=== PATIENT | male | born 1985 | race American Indian/Alaskan Native ===

== ENCOUNTER 2021-08-25 07:26 | Emergency (ER) | payer SELFPAY ==
[2021-08-25 07:35] VITALS: BP 151/77
--- NOTE | 2021-08-25 08:17 | XRay Report ---
RIGHT FOOT 3 VIEWS INDICATION: mid/medial foot pain, no injury, hx of hardware. COMPARISON: None. IMPRESSION: There has been previous surgical fusion of metatarsal bases 1 and 2, cuboid bone and med ial cuneiform bone with 2 orthopedic screws. Please correlate with surgical history. Moderate degener ative changes and spurring is identified at the tarsal metatarsal junction medially. No acute osseous injury or bony destruction is identified. No erosive joint pathology. The soft tissues are unremark able. Signer Name: Adam Johnson Jr, MD Signed: 08/25/2021 8:13 AM Workstation Name: [id number]
--- NOTE | 2021-08-25 08:36 | Emergency Department Report ---
ED General Adult HPI - General Chief complaint: Extremity Injury, Lower Stated complaint: SEVERE RT FOOT PAIN Time Seen by Provider: 08/25/21 07:36 Source: patient Mode of arrival: Ambulatory Limitations: No Limitations - History of Present Illness Initial comments: 36-year-old -[place] male patient presents with complaints of right foot pain x2 weeks. He reports 9 years ago he had hardware placed in his foot after having multiple fractures. He denies any complications since the surgery. No new injuries per patient. He does report that he does a great deal of walking and standing for work. The pain worsens with both walking and standing and resolves with rest. He has not tried any OTC medications for his symptoms. He also denies any numbness/tingling/weakness in his foot, skin changes, swelling, or difficulty moving his foot. Patient rates his pain as a 9/10 in severity when it does occur. - Related Data Previous Rx's Medication Instructions Recorded Last Taken Type Naproxen 500 mg PO BID PRN #20 tablet 08/25/21 Unknown Rx predniSONE [Deltasone] 20 mg PO BID 2 Days #4 tab 08/25/21 Unknown Rx Allergies Allergy/AdvReac Type Severity Reaction Status Date / Time No Known Allergies Allergy Unverified 08/25/21 07:29 ED Review of Systems ROS: Stated complaint: SEVERE RT FOOT PAIN Other details as noted in HPI Constitutional: denies: fever, malaise Musculoskeletal: arthralgia. denies: joint swelling Skin: denies: change in color Neurological: denies: weakness, numbness, paresthesias ED Past Medical Hx - Past Medical History Previous Medical History?: No - Surgical History Past Surgical History?: Yes Additional Surgical History: FOOT SURGERY - Medications Home Medications: Home Medications Medication Instructions Recorded Confirmed Last Taken Type Naproxen 500 mg PO BID PRN #20 tablet 08/25/21 Unknown Rx predniSONE [Deltasone] 20 mg PO BID 2 Days #4 tab 08/25/21 Unknown Rx ED Physical Exam - General Limitations: No Limitations General appearance: alert, in no apparent distress - Head Head exam: Present: atraumatic, normocephalic - Eye Eye exam: Present: normal appearance - Neck Neck exam: Present: normal inspection - Respiratory Respiratory exam: Absent: respiratory distress - Cardiovascular Cardiovascular Exam: Present: regular rate - Extremities Exam Extremities exam: Present: full ROM - Expanded Lower Extremity Exam Right Foot/Toe exam: Present: full ROM, tenderness (Tenderness to palpation noted to medial top portion of foot; no swelling or skin changes noted; surgical scars are noted; normal pedal pulse, range of motion of the foot and ankle, and sensation and perfusion is noted) Neuro vascular tendon exam: Present: no vascular compromise. Absent: pulse deficit Gait: Positive: antalgic - Neurological Exam Neurological exam: Present: alert, oriented X3 - Psychiatric Psychiatric exam: Present: normal affect, normal mood ED Course Vital Signs 08/25/21 07:34 Temperature 98.0 F Pulse Rate 91 H Respiratory 20 Rate Blood Pressure 151/77 O2 Sat by Pulse 97 Oximetry ED Medical Decision Making - Radiology Data Radiology results: report reviewed Fluoro Time In Minutes: RIGHT FOOT 3 VIEWS INDICATION: mid/medial foot pain, no injury, hx of hardware. COMPARISON: None. IMPRESSION: There has been previous surgical fusion of metatarsal bases 1 and 2, cuboid bone and medial cuneiform bone with 2 orthopedic screws. Please correlate with surgical history. Moderate degenerative changes and spurring is identified at the tarsal metatarsal junction medially. No acute osseous injury or bony destruction is identified. No erosive joint pathology. The soft tissues are unremarkable. - Medical Decision Making 36-year-old -[place] male patient presents with complaints of right foot pain x2 weeks. He reports 9 years ago he had hardware placed in his foot after having multiple fractures. He denies any complications since the surgery. No new injuries per patient. He does report that he does a great deal of walking and standing for work. The pain worsens with both walking and standing and resolves with rest. He has not tried any OTC medications for his symptoms. He also denies any numbness/tingling/weakness in his foot, skin changes, swelling, or difficulty moving his foot. Patient rates his pain as a 9/10 in severity when it does occur. No acute abnormalities noted on x-ray however there are arthritic changes noted in the area of patient's pain. Recommend he follows up with orthopedics for further evaluation and treatment. He is otherwise well-appearing, his vitals are within normal limits, he is stable for discharge home. Discussed in detail signs and symptoms that should prompt immediate return to the ED with patient who verbalizes understanding. Critical care attestation.: If time is entered above; I have spent that time in minutes in the direct care of this critically ill patient, excluding procedure time. ED Disposition Clinical Impression: Right foot pain Disposition: HOME / SELF CARE / HOMELESS Is pt being admited?: No Condition: Stable Instructions: Reactive Arthritis, Foot Pain Prescriptions: predniSONE [Deltasone] 20 mg PO BID 2 Days #4 tab Naproxen 500 mg PO BID PRN #20 tablet PRN Reason: pain Referrals: [facility] [Provider Group] - 3-5 Days Forms: Work/School Release Form(ED)
== END 2021-08-25 08:55 | disposition home or self-care (01) ==
LOC: ED 07:26
DX: M79.671 Pain in right foot (principal); Z79.899 Other long term (current) drug therapy
CPT/HCPCS: 99283

== ENCOUNTER 2022-06-21 12:32 | Emergency (ER) | payer SELFPAY ==
[2022-06-21 14:46] VITALS: BP 133/82
--- NOTE | 2022-06-21 14:46 | Emergency Department Report ---
ED ENT HPI - General Chief complaint: Dental/Oral Stated complaint: TOOTH ACHE Time Seen by Provider: 06/21/22 14:45 Source: patient Mode of arrival: Ambulatory Limitations: No Limitations - History of Present Illness Initial comments: 37 YO COMES TO ER WITH BILATERAL LOWER MOLAR PAIN HE HAS OBVIOUS CAVITIES BUT HAS NOT SEEN DMD ABC INTACT NO LUDWIGS NO ABSCESS TAKING PO NO TRISMUS NO FEVER NO CHILLS MD complaint: tooth pain -: Gradual, week(s) Severity scale (0 -10): 3 Quality: aching Consistency: constant Improves with: none Worsens with: none Associated Symptoms: toothache - Related Data Previous Rx's Medication Instructions Recorded Last Taken Type Amoxicillin [Trimox CAP] 500 mg PO BID #20 capsule 06/21/22 Unknown Rx Allergies Allergy/AdvReac Type Severity Reaction Status Date / Time No Known Allergies Allergy Verified 06/21/22 14:41 ED Dental HPI - General Chief complaint: Dental/Oral Stated complaint: TOOTH ACHE Time Seen by Provider: 06/21/22 14:45 Source: patient Mode of arrival: Ambulatory Limitations: No Limitations - Related Data Previous Rx's Medication Instructions Recorded Last Taken Type Amoxicillin [Trimox CAP] 500 mg PO BID #20 capsule 06/21/22 Unknown Rx Allergies Allergy/AdvReac Type Severity Reaction Status Date / Time No Known Allergies Allergy Verified 06/21/22 14:41 ED Review of Systems ROS: Stated complaint: TOOTH ACHE Other details as noted in HPI Comment: All other systems reviewed and negative ED Past Medical Hx - Past Medical History Previous Medical History?: No - Surgical History Past Surgical History?: No Additional Surgical History: FOOT SURGERY - Family History Family history: no significant - Social History Smoking Status: Never Smoker Substance Use Type: None - Medications Home Medications: Home Medications Medication Instructions Recorded Confirmed Last Taken Type Amoxicillin [Trimox CAP] 500 mg PO BID #20 capsule 06/21/22 Unknown Rx ED Physical Exam - General Limitations: No Limitations General appearance: alert, in no apparent distress - Head Head exam: Present: atraumatic, normocephalic - Eye Eye exam: Present: normal appearance - ENT ENT exam: Present: mucous membranes moist - Expanded ENT Exam Expanded Mouth exam: Absent: drooling, trismus, muffled voice Teeth exam: Present: dental caries 1 - Other (CARIES) 2 - Other (CARIES) - Neck Neck exam: Present: normal inspection - Respiratory Respiratory exam: Present: normal lung sounds bilaterally. Absent: respiratory distress - Cardiovascular Cardiovascular Exam: Present: regular rate, normal rhythm. Absent: systolic murmur, diastolic murmur, rubs, gallop - GI/Abdominal GI/Abdominal exam: Present: soft, normal bowel sounds - Rectal Rectal exam: Present: deferred - Extremities Exam Extremities exam: Present: normal inspection - Back Exam Back exam: Present: normal inspection - Neurological Exam Neurological exam: Present: alert, oriented X3 - Psychiatric Psychiatric exam: Present: normal affect, normal mood - Skin Skin exam: Present: warm, dry, intact, normal color. Absent: rash ED Course Vital Signs 06/21/22 14:43 Temperature 98.4 F Pulse Rate 82 Respiratory 18 Rate Blood Pressure 133/82 [Left] O2 Sat by Pulse 97 Oximetry ED Medical Decision Making - Medical Decision Making Vital Signs 06/21/22 14:43 Temperature 98.4 F Pulse Rate 82 Respiratory 18 Rate Blood Pressure 133/82 [Left] O2 Sat by Pulse 97 Oximetry ABC INTACT EDUCATED ON DENTAL CARE DC HOME WITH DC PLAN OF CARE INCLUDING DIET, MEDS, ACTIVITY AND FOLLOW UP. HE VERBALIZES UNDERSTANDING OF PLAN OF CARE. - Differential Diagnosis DENTAL PAIN RO ABSCESS Critical care attestation.: If time is entered above; I have spent that time in minutes in the direct care of this critically ill patient, excluding procedure time. ED Disposition Clinical Impression: Pain, dental Disposition: 01 HOME / SELF CARE / HOMELESS Is pt being admited?: No Does the pt Need Aspirin: No Condition: Stable Instructions: Acute Pain, Adult Additional Instructions: ANTIBIOTIC TWICE PER DAY UNTIL GONE OVER THE COUNTER MOTRIN OR TYLENOL FOR PAIN SEE DMD WE DISCUSSED REFERRAL BELOW Prescriptions: Amoxicillin [Trimox CAP] 500 mg PO BID #20 capsule Referrals: [facility] [Outside] - 3-5 Days [facility] [Outside] - 3-5 Days Forms: Work/School Release Form(ED) Time of Disposition: 14:47
== END 2022-06-21 15:12 | disposition home or self-care (01) ==
LOC: ED 12:32
DX: K08.89 Other specified disorders of teeth and supporting structures (principal); Z79.899 Other long term (current) drug therapy
CPT/HCPCS: 99282